=== PATIENT | female | born 1955 | race African-American/Black ===

== ENCOUNTER 2017-08-29 15:59 | Inpatient (IN) | payer OTHER ==
[2017-08-29 19:20] VITALS: BMI 18.5
--- NOTE | 2017-08-29 20:53 | HP ---
CIWA Score - CIWA Score Nausea/Vomitin-No Nausea/No Vomiting Muscle Tremors: 3 Anxiety: 3 Agitation: 4-Moderately Restless Paroxysmal Sweats: 3 Orientation: 3-Disoriented Date>2 days Tacttile Disturbances: 0-None Auditory Disturbances: 0-None Visual Disturbances: 0-None Headache: 3-Moderate CIWA-Ar Total Score: 19 Admission ROS BHS - HPI Chief Complaint: SEEKING DETOX FOR ALCOHOLISM WITH WITHDRAWAL SX'S Allergies/Adverse Reactions: Allergies Allergy/AdvReac Type Severity Reaction Status Date / Time No Known Allergies Allergy Verified 06/09/17 19:48 History of Present Illness: 62 Y.O. FEMLAE WITH LONG HX/O POLYSUBSTANCE ABUSE HERE FOR ALCOHOL DETOX. CLIENT IS KNOWN TO THIS PROGRAM. LAST HERE 05/2017. SHE IS SELF REFERRED. REPORTS LONGEST CLEAN TIME "ALONG TIME". DENIES HX/O SEIZURE, SI/HI AND A/V HALLUCINATIONS. PMHX: HEAD TRAUMA, PSYCH: CLIENT IS PRESENTLY A POOR HISTORIAN DUE TO INTOXICATION Exam Limitations: Intoxication - Ebola screening Have you traveled outside of the country in the last 21 days: No (N) Have you had contact with anyone from an Ebola affected area: No Have you been sick,other than usual withdrawal symptoms: No Do you have a fever: No - Review of Systems Constitutional: Night Sweats EENT: reports: No Symptoms Reported Respiratory: reports: No Symptoms reported Cardiac: reports: No Symptoms Reported GI: reports: Poor Appetite, Poor Fluid Intake : reports: Frequency Musculoskeletal: reports: No Symptoms Reported Integumentary: reports: No Symptoms Reported Neuro: reports: No Symptoms reported Endocrine: reports: No Symptoms Reported Hematology: reports: No Symptoms Reported Psychiatric: reports: Agitated, Depressed Other Systems: Reviewed and Negative Patient History - Patient Medical History Hx Anemia: No Hx Asthma: No Hx Chronic Obstructive Pulmonary Disease (COPD): No Hx Cancer: No Hx Cardiac Disorders: No Hx Congestive Heart Failure: No Hx Hypertension: Yes (Pt is non compliant with meds.) Hx Hypercholesterolemia: No Hx Pacemaker: No HX Cerebrovascular Accident: No Hx Seizures: No Hx Diabetes: No Hx Gastrointestinal Disorders: No Hx Liver Disease: No Hx Genitourinary Disorders: No Hx Sexually Transmitted Disorders: No Hx Renal Disease (ESRD): No Hx Thyroid Disease: No Hx Human Immunodeficiency Virus (HIV): No Hx Hepatitis C: No Hx Depression: Yes Hx Suicide Attempt: No Hx Bipolar Disorder: No Hx Schizophrenia: No Other Medical History: POOR HISTORIAN DUE TO INTOXICATION - Patient Surgical History Past Surgical History: Yes Other Surgical History: 2 BRAIN SX Anesthesia Reaction: No - PPD History Previous Implant?: Yes Documented Results: Negative w/proof Implanted On Prior [facility] Admission?: Yes Date: 06/04/14 Results: 0MM PPD to be Administered?: Yes - Reproductive History Patient is a Female of Child Bearing Age (11 -55 yrs old): No [place] : [place] [facility] [place] Smoking Cessation Smoking history: Current every day smoker Have you smoked in the past 12 months: Yes Aproximately how many cigarettes per day: 10 Hx Chewing Tobacco Use: No Initiated information on smoking cessation: Yes 'Breaking Loose' booklet given: 08/29/17 - Substance & Tx. History Hx Alcohol Use: Yes Hx Substance Use: Yes Substance Use Type: Alcohol, Cocaine Hx Substance Use Treatment: Yes ([facility]) - Substances Abused VODKA Route: Oral Frequency: Daily Amount used: 1 PINT Age of first use: 31 Date of Last Use: 08/29/17 COCAINE Route: Smoking Frequency: 3-6 times per week Amount used: $20 Age of first use: 31 Date of Last Use: 08/27/17 Family Disease History - Family Disease History Family History: Denies Admission Physical Exam [facility] - Vital Signs Vital Signs: Vital Signs - 24 hr 08/29/17 19:18 Temperature 98.7 F - Physical General Appearance: Yes: Appropriately Dressed, Moderate Distress, Alcohol on Breath, Intoxicated, Tremorous, Irritable, Other (CRYING) HEENTM: Yes: EOMI, Normocephalic, LIYA, Pharynx Normal, Other (MISS[place] TEETH) Respiratory: Yes: Chest Non-Tender, Lungs Clear, Normal Breath Sounds, No Respiratory Distress, No Accessory Muscle Use Neck: Yes: No masses,lesions,Nodules, Supple, Trachea in good position Breast: Yes: Breast Exam Deferred Cardiology: Yes: Regular Rhythm, Regular Rate, S1, S2 Abdominal: Yes: Normal Bowel Sounds, Non Tender, Soft, Protuberent Genitourinary: Yes: Frequency (REPORTS) Back: Yes: Normal Inspection Musculoskeletal: Yes: full range of Motion, Gait Steady Extremities: Yes: Normal Capillary Refill, Normal Range of Motion, Tremors, Coldness Neurological: Yes: Alert, Disoriented (DUE TO INTOXICATION), Depressed Affect Integumentary: Yes: Cold, Moist Lymphatic: Yes: Within Normal Limits - Diagnostic (1) Alcohol dependence with uncomplicated withdrawal Current Visit: Yes Status: Acute (2) Substance induced mood disorder Current Visit: Yes Status: Suspected (3) Cocaine dependence Current Visit: Yes Status: Chronic (4) HTN (hypertension) Current Visit: Yes Status: Chronic Cleared for Admission [facility] - Detox or Rehab [facility] Level of Care: Medically Managed Detox Regimen/Protocol: Librium Claeared for Rehab Admission: No S Breath Alcohol Content Breath Alcohol Content: 0.293 Urine Pregancy Test - Result Urine Test Results: Negative- NO Line Present Urine Drug Screen - Results Drug Screen Negative: No Urine Drug Screen Results: GENE-Cocaine
[2017-08-29] MEDS ORDERED: MENTHOL/PHENOL 1 EACH UD MM PRN (21:16)
[2017-08-29] MEDS ORDERED: guaiFENesin/D-METHORPHAN HB 10 ML UNIT-DOSE CUPS PO PRN (21:16)
[2017-08-29] MEDS ORDERED: hydrOXYzine PAMOATE 50 MG CAPSULE (FP) PO PRN (21:16)
[2017-08-29] MEDS ORDERED: ACETAMINOPHEN 325 MG TABLET (FP) PO PRN (21:16)
[2017-08-29] MEDS ORDERED: MAGNESIUM HYDROX 2400MG/30ML ORAL SUSPENSION 30 ML CUP PO PRN (21:16)
[2017-08-29] MEDS ORDERED: chlordiazePOXIDE HCL 25 MG CAPSULE PO PRN (21:16)
[2017-08-29] MEDS ORDERED: MAGNESIUM CITRATE 300 ML BOTTLE PO PRN (21:16)
[2017-08-29] MEDS ORDERED: NICOTINE POLACRILEX 2 MG GUM BC PRN (21:16)
[2017-08-29] MEDS ORDERED: P-EPHED 60MG/TRIPROLIDI 2.5MG TABLET PO PRN (21:16)
[2017-08-29] MEDS ORDERED: MAG HYDROX/AL HYDROX/SIMETH 30 ML UNIT-DOSE CUP PO PRN (21:16)
[2017-08-29] MEDS ORDERED: IBUPROFEN 400 MG TABLET (FP) PO PRN (21:16)
[2017-08-29] MEDS ORDERED: LOPERAMIDE HCL 2 MG CAPSULE PO PRN (21:16)
[2017-08-29] MEDS ORDERED: MELATONIN 5 MG TABLETS PO PRN (22:00)
[2017-08-30] MEDS: chlordiazePOXIDE HCL 25 MG CAPSULE PO SCH ×5 (01:24→22:16)
[2017-08-30] MEDS: THIAMINE HCL 100 MG TABLET (FP) PO SCH ×2 (01:29→22:16)
[2017-08-30] MEDS ORDERED: cloNIDine HCL 0.1 MG TABLET PO ONE (06:33)
--- NOTE | 2017-08-30 08:41 | CONSULT ---
[facility] Psychiatric Consult - Data Date of interview: 08/30/17 Admission source: [facility] Identifying data: This is 62 years old female, divorsed, unemployed, homeless, on SSI, with a long history of Alcohol, Cocaine and Nicotine dependence,abuse i seeking for detox, selfreferred, reports withdrawal symptoms, poor historian. Substance Abuse History: Smoking history: Current every day smoker. Have you smoked in the past 12 months: Yes. Aproximately how many cigarettes per day: 10. Hx Chewing Tobacco Use: No. Initiated information on smoking cessation: Yes. 'Breaking Loose' booklet given: 08/29/17. - Substance & Tx. History. Hx Alcohol Use: Yes. Hx Substance Use: Yes. Substance Use Type: Alcohol, Cocaine. Hx Substance Use Treatment: Yes ([facility] - Substances Abused. VODKA. Route: Oral. Frequency: Daily. Amount used: 1 PINT. Age of first use : 31. Date of Last Use: 08/29/17. COCAINE. Route: Smoking. Frequency: 3- 6 times per week. Amount used: $20. Age of first use: 31. Date of Last Use: 08/27/17 Medical History: History of head injury, HTN Psychiatric History: Patient reports unclear psychiatric admission, unclear suicidal history, reports no medications taking prior to admission, sedated. Physical/Sexual Abuse/Trauma History: Denies, unclear Additional Comment: Observation. Detox Unit Care Protocol Mental Status Exam - Mental Status Exam Alert and Oriented to: Person Cognitive Function: Fair Patient Appearance: Unkempt Mood: Sad Affect: Flat Patient Behavior: Sedated Speech Pattern: Delayed Voice Loudness: Moderately Soft/Quiet Thought Process: Circumstantial Thought Disorder: Being Controlled Hallucinations: Denies Suicidal Ideation: Denies Homicidal Ideation: Denies Insight/Judgement: Fair Sleep: Fair Appetite: Weight loss Muscle strength/Tone: Moderate Hypotonicity Gait/Station: Deferred Additional Comments: Observation. Detox Unit Care Protocol Psychiatric Findings - Problem List ([place] 1, 2,3) (1) Alcohol dependence with uncomplicated withdrawal Current Visit: Yes Status: Acute (2) Cocaine dependence Current Visit: Yes Status: Chronic (3) Substance induced mood disorder Current Visit: Yes Status: Suspected (4) Alcohol dependence Current Visit: No Status: Acute (5) Cachexia Current Visit: No Status: Acute (6) Cannabis dependence Current Visit: No Status: Acute (7) Depressive disorder Current Visit: No Status: Acute - Initial Treatment Plan Initial Treatment Plan: Observation. Detox Unit Care Protocol
--- NOTE | 2017-08-30 10:27 | PN ---
BHS CIWA - CIWA Score Nausea/Vomitin Muscle Tremors: 3 Anxiety: 3 Agitation: 2 Paroxysmal Sweats: 1-Minimal Palms Moist Orientation: 0-Oriented Tacttile Disturbances: 1-Very Mild Itch/Numbness Auditory Disturbances: 1-Very Mild Visual Disturbances: 0-None Headache: 2-Mild CIWA-Ar Total Score: 16 BHS Progress Note (SOAP) Subjective: alert,irritable,anxious,interrupted sleep,tremor Objective: 08/30/17 10:33 Vital Signs Temperature 98.2 F 08/30/17 09:33 Pulse Rate 93 H 08/30/17 09:33 Respiratory Rate 16 08/30/17 09:33 Blood Pressure 138/99 08/30/17 09:33 O2 Sat by Pulse Oximetry (%) ekg nsr peak t in v3,v4 prolong qt 430/480 no chest pain,no sob,no dizziness labs pending Assessment: 08/30/17 10:36 withdrawal symptom Plan: continue detox
[2017-08-30 10:31] LABS: BASO % 2.2 % (0-2.0); EOS % 4.1 % (0-4.5); HEMATOCRIT 31.3 % (32.4-45.2); HEMOGLOBIN 10.4 GM/dL (10.7-15.3); LYMPH % 46.6 % (8-40); MCH 28.9 pg (25.7-33.7); MCHC 33.1 g/dl (32.0-36.0); MEAN CELL VOLUME 87.1 fl (80-96); MEAN PLT VOLUME 7.1 fl (7.5-11.1); MONO % 12.1 % (3.8-10.2); PLATELET COUNT 291 K/MM3 (134-434); RBC 3.59 M/mm3 (3.60-5.2); RDW 15.2 % (11.6-15.6); WHITE BLOOD COUNT 2.6 K/mm3 (4.0-10.0)
[2017-08-30 10:47] LABS: ALBUMIN 3.3 g/dl (3.4-5.0); ALK PHOS 59 U/L (45-117); ANION GAP 8 (8-16); BILIRUBIN,TOTAL 0.3 mg/dL (0.2-1.0); BLOOD UREA NITROGEN 19 mg/dL (7-18); CALCIUM 8.2 mg/dL (8.5-10.1); CHLORIDE 104 mmol/L (98-107); CO2 30 mmol/L (21-32); CREATININE 1.3 mg/dL (0.55-1.02); GLUCOSE,RANDOM 89 mg/dL (74-106); POTASSIUM 3.6 mmol/L (3.5-5.1); SGOT/AST 30 U/L (15-37); SGPT/ALT 27 U/L (12-78); SODIUM 142 mmol/L (136-145); TOT PROT 7.2 g/dl (6.4-8.2)
--- NOTE | 2017-08-30 11:53 | EKG ---
Test Reason : Blood Pressure : / mmHG Vent. Rate : 075 BPM Atrial Rate : 075 BPM P-R Int : 172 ms QRS Dur : 082 ms QT Int : 430 ms P-R-T Axes : 072 013 056 degrees QTc Int : 480 ms NORMAL SINUS RHYTHM ANTEROSEPTAL INFARCT , AGE UNDETERMINED ABNORMAL ECG NO PREVIOUS ECGS AVAILABLE Confirmed by ROMINA BURGESS MD ([id number]) on 08/30/2017 11:53:13 AM Referred By: Confirmed By:ROMINA BURGESS MD
[2017-08-30] MEDS: PRENATAL VITAMINS W/ FOLIC ACID TABLET (FP) PO SCH (12:02)
[2017-08-30] MEDS: NICOTINE 14 MG/24 HOURS TOPICAL PATCH TD SCH (12:02)
[2017-08-30] MEDS: cloNIDine HCL 0.1 MG TABLET PO PRN ×2 (15:16→22:16)
[2017-08-30 17:00] LABS: URINE APPEARANCE CLEAR; URINE BILIRUBIN NEGATIVE (<2.0 mg/dL); URINE BLOOD NEGATIVE (NEGATIVE); URINE COLOR LTYELLOW; URINE GLUCOSE (UA) 2+ (NEGATIVE); URINE KETONE NEGATIVE (NEGATIVE); URINE LEUK ESTERASE NEGATIVE (NEGATIVE); URINE NITRITE NEGATIVE (NEGATIVE); URINE UROBILINOGEN NEGATIVE mg/dL (0.2-1.0)
[2017-08-30 17:19] LABS: URINE PROTEIN 1+ (NEGATIVE)
[2017-08-30 17:27] LABS: EPI CELLS RARE /HPF (FEW); URINE BACTERIA RARE /hpf (NONE SEEN); URINE MUCUS RARE
[2017-08-31] MEDS: chlordiazePOXIDE HCL 25 MG CAPSULE PO SCH ×3 (06:14→17:36)
[2017-08-31] MEDS: cloNIDine HCL 0.1 MG TABLET PO PRN (06:15)
--- NOTE | 2017-08-31 08:57 | PN ---
S CIWA - CIWA Score Nausea/Vomitin Muscle Tremors: 3 Anxiety: 2 Agitation: 2 Paroxysmal Sweats: 1-Minimal Palms Moist Orientation: 0-Oriented Tacttile Disturbances: 1-Very Mild Itch/Numbness Auditory Disturbances: 1-Very Mild Visual Disturbances: 0-None Headache: 2-Mild CIWA-Ar Total Score: 15 BHS Progress Note (SOAP) Subjective: alert,irritable,anxious,interrupted sleep,tremor Objective: 08/31/17 08:53 Vital Signs Temperature 97.5 F L 08/31/17 06:00 Pulse Rate 70 08/31/17 06:00 Respiratory Rate 18 08/31/17 06:00 Blood Pressure 148/105 08/31/17 06:00 O2 Sat by Pulse Oximetry (%) Laboratory Last Values WBC 2.6 K/mm3 (4.0-10.0) L D 08/30/17 07:30 RBC 3.59 M/mm3 (3.60-5.2) L 08/30/17 07:30 Hgb 10.4 GM/dL (10.7-15.3) L 08/30/17 07:30 Hct 31.3 % (32.4-45.2) L 08/30/17 07:30 MCV 87.1 fl (80-96) 08/30/17 07:30 MCH 28.9 pg (25.7-33.7) 08/30/17 07:30 MCHC 33.1 g/dl (32.0-36.0) 08/30/17 07:30 RDW 15.2 % (11.6-15.6) 08/30/17 07:30 Plt Count 291 K/MM3 (134-434) D 08/30/17 07:30 MPV 7.1 fl (7.5-11.1) L D 08/30/17 07:30 Absolute Neuts (auto) 0.9 # 08/30/17 07:30 Neutrophils % 35.0 % (42.8-82.8) L 08/30/17 07:30 Lymphocytes % 46.6 % (8-40) H 08/30/17 07:30 Monocytes % 12.1 % (3.8-10.2) H 08/30/17 07:30 Eosinophils % 4.1 % (0-4.5) 08/30/17 07:30 Basophils % 2.2 % (0-2.0) H 08/30/17 07:30 Nucleated RBC % 0 % (0-0) 08/30/17 07:30 Sodium 142 mmol/L (136-145) 08/30/17 07:30 Potassium 3.6 mmol/L (3.5-5.1) 08/30/17 07:30 Chloride 104 mmol/L (98-107) 08/30/17 07:30 Carbon Dioxide 30 mmol/L (21-32) 08/30/17 07:30 Anion Gap 8 (8-16) 08/30/17 07:30 BUN 19 mg/dL (7-18) H 08/30/17 07:30 Creatinine 1.3 mg/dL (0.55-1.02) H 08/30/17 07:30 Creat Clearance w eGFR 41.64 (>60) 08/30/17 07:30 Random Glucose 89 mg/dL (74-106) 08/30/17 07:30 Calcium 8.2 mg/dL (8.5-10.1) L 08/30/17 07:30 Total Bilirubin 0.3 mg/dL (0.2-1.0) D 08/30/17 07:30 AST 30 U/L (15-37) 08/30/17 07:30 ALT 27 U/L (12-78) 08/30/17 07:30 Alkaline Phosphatase 59 U/L (45-117) 08/30/17 07:30 Total Protein 7.2 g/dl (6.4-8.2) 08/30/17 07:30 Albumin 3.3 g/dl (3.4-5.0) L 08/30/17 07:30 Urine Color Ltyellow 08/30/17 15:00 Urine Appearance Clear 08/30/17 15:00 Urine pH 7.0 (5.0-8.0) D 08/30/17 15:00 Ur Specific [place] 1.011 (1.001-1.035) 08/30/17 15:00 Urine Protein 1+ (NEGATIVE) H 08/30/17 15:00 Urine Glucose (UA) 2+ (NEGATIVE) H 08/30/17 15:00 Urine Ketones Negative (NEGATIVE) 08/30/17 15:00 Urine Blood Negative (NEGATIVE) 08/30/17 15:00 Urine Nitrite Negative (NEGATIVE) 08/30/17 15:00 Urine Bilirubin Negative (<2.0 mg/dL) 08/30/17 15:00 Urine Urobilinogen Negative mg/dL (0.2-1.0) 08/30/17 15:00 Ur Leukocyte Esterase Negative (NEGATIVE) 08/30/17 15:00 Urine WBC (Auto) 1 /hpf (3-5) 08/30/17 15:00 Urine RBC (Auto) <1 /hpf (0-3) 08/30/17 15:00 Ur Epithelial Cells Rare /HPF (FEW) 08/30/17 15:00 Urine Bacteria Rare /hpf (NONE SEEN) 08/30/17 15:00 Urine Mucus Rare 08/30/17 15:00 RPR Titer Nonreactive (NONREACTIVE) 08/30/17 07:30 Assessment: 08/31/17 08:56 withdrawal symptom Plan: continue detox,encourage oral fluid,cbc,cmp in am
[2017-08-31] MEDS: PRENATAL VITAMINS W/ FOLIC ACID TABLET (FP) PO SCH (11:20)
[2017-08-31] MEDS: METOPROLOL TARTRATE 25 MG TABLET (FP) PO SCH ×2 (11:21→22:10)
[2017-08-31] MEDS: NICOTINE 14 MG/24 HOURS TOPICAL PATCH TD SCH (11:21)
[2017-08-31] MEDS: PANTOPRAZOLE 20 MG TABLET (FP) PO SCH (11:21)
[2017-08-31] MEDS: THIAMINE HCL 100 MG TABLET (FP) PO SCH (22:10)
[2017-08-31] MEDS: chlordiazePOXIDE 5 MG CAPSULE PO SCH (22:10)
[2017-09-01] MEDS: chlordiazePOXIDE 5 MG CAPSULE PO SCH ×3 (05:13→17:43)
[2017-09-01] MEDS: cloNIDine HCL 0.1 MG TABLET PO PRN (05:14)
[2017-09-01 10:25] LABS: HEMOGLOBIN 10.5 GM/dL (10.7-15.3); MCH 28.8 pg (25.7-33.7); MCHC 32.9 g/dl (32.0-36.0); MEAN CELL VOLUME 87.5 fl (80-96); MEAN PLT VOLUME 7.2 fl (7.5-11.1); PLATELET COUNT 299 K/MM3 (134-434); RBC 3.66 M/mm3 (3.60-5.2); RDW 15.3 % (11.6-15.6)
[2017-09-01] MEDS: METOPROLOL TARTRATE 25 MG TABLET (FP) PO SCH (10:30)
[2017-09-01] MEDS: PRENATAL VITAMINS W/ FOLIC ACID TABLET (FP) PO SCH (10:30)
[2017-09-01] MEDS: PANTOPRAZOLE 20 MG TABLET (FP) PO SCH (10:31)
[2017-09-01] MEDS: NICOTINE 14 MG/24 HOURS TOPICAL PATCH TD SCH (10:31)
[2017-09-01 10:46] LABS: CHLORIDE 100 mmol/L (98-107); POTASSIUM 4.2 mmol/L (3.5-5.1); SODIUM 135 mmol/L (136-145)
[2017-09-01 11:21] LABS: ALK PHOS 58 U/L (45-117); ANION GAP 5 (8-16); BILIRUBIN,TOTAL 0.3 mg/dL (0.2-1.0); BLOOD UREA NITROGEN 25 mg/dL (7-18); CO2 30 mmol/L (21-32); CREATININE 1.4 mg/dL (0.55-1.02); GLUCOSE,RANDOM 96 mg/dL (74-106); SGOT/AST 23 U/L (15-37); SGPT/ALT 25 U/L (12-78); TOT PROT 6.8 g/dl (6.4-8.2)
--- NOTE | 2017-09-01 11:24 | PN ---
BHS Progress Note (SOAP) Subjective: alert,irritable,anxious,interrupted sleep,pain in the body Objective: 09/01/17 11:21 Vital Signs Temperature 96.6 F L 09/01/17 06:00 Pulse Rate 63 09/01/17 07:15 Respiratory Rate 18 09/01/17 07:15 Blood Pressure 137/92 09/01/17 07:15 O2 Sat by Pulse Oximetry (%) Laboratory Results - last 24 hr 09/01/17 09/01/17 07:30 07:30 WBC 3.0 L RBC 3.66 Hgb 10.5 L Hct 32.0 L MCV 87.5 MCH 28.8 MCHC 32.9 RDW 15.3 Plt Count 299 MPV 7.2 L Sodium 135 L Potassium 4.2 Chloride 100 Assessment: 09/01/17 11:22 withdrawal symptom labs pending Plan: continue detox
--- NOTE | 2017-09-01 21:04 | DS ---
[facility] Detox Discharge Summary Admission Date: 08/29/17 Discharge Date: 09/01/17 - History Present History: Alcohol Dependence, Cannabis Dependence, Cocaine Dependence Additional Comments: PATIENT DOES NOT WISH TO STAY TO COMPLETE DETOX REGIMEN. RISKS OF LEAVING DETOX UNIT AGAINST MEDICAL ADVICE AND PRIOR TO COMPLETION OF DETOX REGIMEN EXPLAINED TO PATIENT. PATIENT DECLINED OFFER OF DISCHARGE MEDICATION PRESCRIPTIONS FOR HOME MEDICATIONS, NOTING THAT SHE CURRENTLY HAS ADEQUATE SUPPLIES AT HOME. PATIENT ADVISED TO GO IMMEDIATELY TO NEAREST ER SHOULD ANY INTOLERABLE DETOX SYMPTOMS DEVELOP AT ANY TIME. PATIENT LEFT DETOX UNIT IN STABLE MEDICAL CONDITION. Pertinent Past History: Depression, Cachexia, Weight Decreased, HTN. - Physical Exam Results Vital Signs: Vital Signs Temperature 97.0 F L 09/01/17 17:43 Pulse Rate 69 09/01/17 17:43 Respiratory Rate 18 09/01/17 17:43 Blood Pressure 147/92 09/01/17 17:43 O2 Sat by Pulse Oximetry (%) Pertinent Admission Physical Exam Findings: WITHDRAWAL SYMPTOMS. Laboratory Tests 08/30/17 08/30/17 08/30/17 07:30 07:30 07:30 WBC 2.6 L D RBC 3.59 L Hgb 10.4 L Hct 31.3 L MCV 87.1 MCH 28.9 MCHC 33.1 RDW 15.2 Plt Count 291 D MPV 7.1 L D Absolute Neuts (auto) 0.9 Neutrophils % 35.0 L Lymphocytes % 46.6 H Monocytes % 12.1 H Eosinophils % 4.1 Basophils % 2.2 H Nucleated RBC % 0 Sodium 142 Potassium 3.6 Chloride 104 Carbon Dioxide 30 Anion Gap 8 BUN 19 H Creatinine 1.3 H Creat Clearance w eGFR 41.64 Random Glucose 89 Calcium 8.2 L Total Bilirubin 0.3 D AST 30 ALT 27 Alkaline Phosphatase 59 Total Protein 7.2 Albumin 3.3 L Urine Color Urine Appearance Urine pH Ur Specific [place] Urine Protein Urine Glucose (UA) Urine Ketones Urine Blood Urine Nitrite Urine Bilirubin Urine Urobilinogen Ur Leukocyte Esterase Urine WBC (Auto) Urine RBC (Auto) Ur Epithelial Cells Urine Bacteria Urine Mucus RPR Titer Nonreactive 08/30/17 09/01/17 09/01/17 15:00 07:30 07:30 WBC 3.0 L RBC 3.66 Hgb 10.5 L Hct 32.0 L MCV 87.5 MCH 28.8 MCHC 32.9 RDW 15.3 Plt Count 299 MPV 7.2 L Absolute Neuts (auto) Neutrophils % Lymphocytes % Monocytes % Eosinophils % Basophils % Nucleated RBC % Sodium 135 L Potassium 4.2 Chloride 100 Carbon Dioxide 30 Anion Gap 5 L BUN 25 H Creatinine 1.4 H Creat Clearance w eGFR 38.23 Random Glucose 96 Calcium 9.0 Total Bilirubin 0.3 AST 23 ALT 25 Alkaline Phosphatase 58 Total Protein 6.8 Albumin 3.0 L Urine Color Ltyellow Urine Appearance Clear Urine pH 7.0 D Ur Specific [place] 1.011 Urine Protein 1+ H Urine Glucose (UA) 2+ H Urine Ketones Negative Urine Blood Negative Urine Nitrite Negative Urine Bilirubin Negative Urine Urobilinogen Negative Ur Leukocyte Esterase Negative Urine WBC (Auto) 1 Urine RBC (Auto) <1 Ur Epithelial Cells Rare Urine Bacteria Rare Urine Mucus Rare RPR Titer LABS NOTED. - Treatment Hospital Course: Detoxed Safely - Medication Discharge Medications: Ambulatory Orders Metoprolol Tartrate [Lopressor -] 25 mg PO BID #60 tablet 06/06/14 Pantoprazole Sodium [Protonix -] 20 mg PO DAILY #30 tablet.ec 06/06/14 Thiamine HCl [Vitamin B1 -] 100 mg PO HS #30 tablet 06/06/14 - Diagnosis (1) Alcohol dependence with uncomplicated withdrawal Current Visit: Yes Status: Acute (2) Cocaine dependence Current Visit: Yes Status: Chronic Qualifiers: Substance use status: uncomplicated Qualified Code(s): F14.20 - Cocaine dependence, uncomplicated (3) HTN (hypertension) Current Visit: Yes Status: Chronic Qualifiers: Hypertension type: unspecified Qualified Code(s): I10 - Essential (primary ) hypertension (4) Substance induced mood disorder Current Visit: Yes Status: Suspected (5) Cachexia Current Visit: Yes Status: Acute (6) Cannabis dependence Current Visit: Yes Status: Acute (7) Depressive disorder Current Visit: Yes Status: Acute (8) History of hypertension Current Visit: Yes Status: Acute (9) Weight decreased Current Visit: Yes Status: Acute - AMA Did Patient Leave Against Medical Advice: Yes (PATIENT DID NOT WISH TO STAY TO COMPLETE DETOX REGIMEN.)
[2017-09-01 22:57] VITALS: BP 147/92; PULSE 69; TEMP 97
[2017-09-01] MEDS ORDERED: chlordiazePOXIDE HCL 10 MG CAPSULE PO SCH (23:00)
== END 2017-09-01 20:30 | disposition left against medical advice (07) | DRG 894 ==
LOC: YASAS 15:59 → Y6N 21:05
PROVIDERS: ADMIT Surgery; ATTEND Surgery
PROC: HZ2ZZZZ Detoxification Services for Substance Abuse Treatment (ICD-10-PCS; principal; 2017-08-29)
DX: F10.230 Alcohol dependence with withdrawal, uncomplicated (principal); F14.20 Cocaine dependence, uncomplicated; R64 Cachexia; F12.20 Cannabis dependence, uncomplicated; F17.210 Nicotine dependence, cigarettes, uncomplicated; F19.24 Other psychoactive substance dependence with psychoactive substance-induced mood disorder; F32.9 Major depressive disorder, single episode, unspecified; I10 Essential (primary) hypertension; I45.81 Long QT syndrome; Z91.14 Patient's other noncompliance with medication regimen; Z87.898 Personal history of other specified conditions
CPT/HCPCS: 36415; 80053; 81003; 81015; 85025; 85027; 86593; 93005; 93010; J0735

== ENCOUNTER 2020-08-12 11:20 | Inpatient (IN) | payer OTHER ==
[2020-08-12 12:25] VITALS: BMI 17.9
[2020-08-12] MEDS ORDERED: NICOTINE POLACRILEX 2 MG GUM BUC PRN (12:57)
[2020-08-12] MEDS ORDERED: LORazepam 1 MG TABLET PO PRN (12:57)
[2020-08-12] MEDS ORDERED: IBUPROFEN 400 MG TABLET (FP) PO PRN (12:57)
[2020-08-12] MEDS ORDERED: MENTHOL/PHENOL 1 EACH UD MM PRN (12:57)
[2020-08-12] MEDS ORDERED: MAGNESIUM HYDROX 2400MG/30ML ORAL SUSPENSION 30 ML CUP PO PRN (12:57)
[2020-08-12] MEDS ORDERED: ONDANSETRON *ODT* 4 MG TABLET SL PRN (12:57)
[2020-08-12] MEDS ORDERED: MAGNESIUM CITRATE 300 ML BOTTLE PO PRN (12:57)
[2020-08-12] MEDS ORDERED: METHOCARBAMOL 500 MG TABLET PO PRN (12:57)
[2020-08-12] MEDS ORDERED: BISMUTH SUBSALICYLATE 524 MG/30 ML PO PRN (12:57)
[2020-08-12] MEDS ORDERED: ACETAMINOPHEN 325 MG TABLET (FP) PO PRN ×2 (12:57)
[2020-08-12] MEDS ORDERED: MAG HYDROX/AL HYDROX/SIMETH 30 ML UNIT-DOSE CUP PO PRN (12:57)
[2020-08-12] MEDS ORDERED: LISINOPRIL 10 MG TABLET PO ONE (14:00)
[2020-08-12] MEDS ORDERED: LISINOPRIL 10 MG TABLET ONE (14:42)
[2020-08-12] MEDS: NICOTINE 7 MG/24 HOURS TOPICAL PATCH TD SCH (15:18)
[2020-08-12] MEDS: hydrOXYzine PAMOATE 25 MG CAPSULE (FP) PO SCH ×3 (15:18→22:30)
[2020-08-12] MEDS: LORazepam 2 MG TABLET PO SCH ×2 (17:46→22:27)
[2020-08-12 19:48] LABS: HEMATOCRIT 33.6 % (32.4-45.2); MCHC 32.8 g/dl (32.0-36.0); MEAN CELL VOLUME 85.5 fl (80-96); MEAN PLT VOLUME 8.2 fl (7.5-11.1); PLATELET COUNT 354 K/MM3 (134-434); RBC 3.93 M/mm3 (3.60-5.2); WHITE BLOOD COUNT 3.7 K/mm3 (4.0-10.0)
[2020-08-12 19:54] LABS: BLOOD UREA NITROGEN 31.5 mg/dL (7-18); CALCIUM 10.1 mg/dL (8.5-10.1)
[2020-08-12 19:57] LABS: CREATININE 2.3 mg/dL (0.55-1.3)
[2020-08-12 19:58] LABS: BILIRUBIN,TOTAL 0.6 mg/dL (0.2-1); TOT PROT 8.2 g/dl (6.4-8.2)
[2020-08-12] MEDS: MELATONIN 5 MG TABLETS PO SCH (22:26)
[2020-08-12] MEDS: THIAMINE HCL 100 MG TABLET (FP) PO SCH (22:26)
[2020-08-12] MEDS: METOPROLOL TARTRATE 25 MG TABLET (FP) PO SCH (22:27)
[2020-08-12] MEDS: PANTOPRAZOLE 40 MG TABLET PO SCH (22:27)
[2020-08-13] MEDS: hydrOXYzine PAMOATE 25 MG CAPSULE (FP) PO SCH ×3 (06:43→13:07)
[2020-08-13] MEDS: LORazepam 2 MG TABLET PO SCH ×4 (06:43→22:27)
[2020-08-13] MEDS: PRENATAL VITAMINS W/ FOLIC ACID TABLET (FP) PO SCH (10:40)
[2020-08-13] MEDS: PANTOPRAZOLE 40 MG TABLET PO SCH (10:40)
[2020-08-13] MEDS: NICOTINE 7 MG/24 HOURS TOPICAL PATCH TD SCH (10:41)
[2020-08-13] MEDS: METOPROLOL TARTRATE 25 MG TABLET (FP) PO SCH ×2 (10:41→22:27)
[2020-08-13] MEDS: MELATONIN 5 MG TABLETS PO SCH (22:27)
[2020-08-13] MEDS: THIAMINE HCL 100 MG TABLET (FP) PO SCH (22:27)
[2020-08-14] MEDS: LORazepam 1 MG TABLET PO SCH ×4 (06:50→22:13)
[2020-08-14] MEDS: PRENATAL VITAMINS W/ FOLIC ACID TABLET (FP) PO SCH (10:51)
[2020-08-14] MEDS: METOPROLOL TARTRATE 25 MG TABLET (FP) PO SCH ×2 (10:51→22:13)
[2020-08-14] MEDS: PANTOPRAZOLE 20 MG TABLET PO SCH (10:51)
[2020-08-14] MEDS: NICOTINE 7 MG/24 HOURS TOPICAL PATCH TD SCH (10:52)
[2020-08-14] MEDS: THIAMINE HCL 100 MG TABLET (FP) PO SCH (22:13)
[2020-08-14] MEDS: MELATONIN 5 MG TABLETS PO SCH (22:13)
[2020-08-15] MEDS ORDERED: LORazepam 0.5 MG TABLET PO PRN
[2020-08-15] MEDS: LORazepam 0.5 MG TABLET PO SCH ×4 (06:41→22:59)
[2020-08-15 08:06] LABS: SARS-CoV-2 NAA Not Detected (Not Detected)
[2020-08-15] MEDS: PRENATAL VITAMINS W/ FOLIC ACID TABLET (FP) PO SCH (10:24)
[2020-08-15] MEDS: NICOTINE 7 MG/24 HOURS TOPICAL PATCH TD SCH (10:24)
[2020-08-15] MEDS: PANTOPRAZOLE 20 MG TABLET PO SCH (10:25)
[2020-08-15] MEDS: METOPROLOL TARTRATE 25 MG TABLET (FP) PO SCH ×2 (10:25→22:58)
[2020-08-15] MEDS: hydrOXYzine PAMOATE 25 MG CAPSULE (FP) PO PRN ×2 (17:59→22:58)
[2020-08-15] MEDS: MELATONIN 5 MG TABLETS PO SCH (22:58)
[2020-08-15] MEDS: THIAMINE HCL 100 MG TABLET (FP) PO SCH (22:59)
[2020-08-16] MEDS ORDERED: LORazepam 0.5 MG TABLET PO ONE (05:00)
[2020-08-16 09:08] VITALS: BP 128/67; PULSE 79; TEMP 96.4
[2020-08-16] MEDS: PRENATAL VITAMINS W/ FOLIC ACID TABLET (FP) PO SCH (09:35)
[2020-08-16] MEDS: PANTOPRAZOLE 20 MG TABLET PO SCH (09:35)
[2020-08-16] MEDS: NICOTINE 7 MG/24 HOURS TOPICAL PATCH TD SCH (09:35)
[2020-08-16] MEDS: METOPROLOL TARTRATE 25 MG TABLET (FP) PO SCH (09:35)
== END 2020-08-16 11:45 | disposition home or self-care (01) | DRG 897 ==
LOC: YASAS 11:20 → Y3N 13:14
PROVIDERS: ADMIT Allergy & Immunology; ATTEND Allergy & Immunology
PROC: HZ2ZZZZ Detoxification Services for Substance Abuse Treatment (ICD-10-PCS; principal; 2020-08-12)
DX: F10.230 Alcohol dependence with withdrawal, uncomplicated (principal); F14.20 Cocaine dependence, uncomplicated; F17.210 Nicotine dependence, cigarettes, uncomplicated; I12.9 Hypertensive chronic kidney disease with stage 1 through stage 4 chronic kidney disease, or unspecified chronic kidney disease; N18.9 Chronic kidney disease, unspecified; R41.3 Other amnesia; R26.89 Other abnormalities of gait and mobility
CPT/HCPCS: 36415; 80053; 82540; 84520; 85027; 86780; C9803; U0003; U0005

== ENCOUNTER 2022-11-06 13:37 | Emergency (ER) | payer BC, OTHER ==
[2022-11-06 14:00] VITALS: BMI 22.3
[2022-11-06 16:50] LABS: BASO % 1.2 % (0-2.0); EOS % 2.4 % (0-4.5); HEMATOCRIT 32.4 % (32.4-45.2); HEMOGLOBIN 10.5 GM/dL (10.7-15.3); LYMPH % 23.5 % (8-40); MCH 27.4 pg (25.7-33.7); MCHC 32.4 g/dl (32.0-36.0); MEAN CELL VOLUME 84.8 fl (80-96); MEAN PLT VOLUME 8.2 fl (7.5-11.1); MONO % 8.2 % (3.8-10.2); NEUT % 64.7 % (42.8-82.8); PLATELET COUNT 379 10^3/uL (134-434); RBC 3.82 M/mm3 (3.60-5.2); RDW 18.8 % (11.6-15.6)
[2022-11-06 16:54] LABS: CHLORIDE 108 mmol/L (98-107); POTASSIUM 4.2 mmol/L (3.5-5.1); SODIUM 143 mmol/L (136-145); VENOUS BASE EXCESS 1.8 mmol/L (-2-2); VENOUS O2 SATURATION 50.5 % (70-80); VENOUS PCO2 50.8 mmHg (38-52); VENOUS PH 7.357 (7.310-7.410)
[2022-11-06 16:56] LABS: CALCIUM 8.8 mg/dL (8.5-10.1)
[2022-11-06 16:57] LABS: ANION GAP 5 MMOL/L (8-16); BLOOD UREA NITROGEN 28.5 mg/dL (7-18); CO2 30 mmol/L (21-32); GLUCOSE,RANDOM 115 mg/dL (74-106); MAGNESIUM 1.9 mg/dL (1.8-2.4)
[2022-11-06 17:00] LABS: CREATININE 2.5 mg/dL (0.55-1.3); PHOSPHOROUS 3.6 mg/dL (2.5-4.9); SGOT/AST 20 U/L (15-37); SGPT/ALT 18 U/L (13-61)
[2022-11-06 17:01] LABS: TOT PROT 6.8 g/dl (6.4-8.2)
[2022-11-06 17:02] LABS: BILIRUBIN,TOTAL 0.3 mg/dL (0.2-1)
[2022-11-06 17:03] LABS: ALK PHOS 77 U/L (45-117)
[2022-11-06 19:07] VITALS: BP 190/99; PULSE 82; RESP 16; TEMP 98
== END 2022-11-06 18:35 | disposition home or self-care (01) ==
LOC: JER 13:37
DX: S09.90XA Unspecified injury of head, initial encounter (principal); R51.9 Headache, unspecified; I10 Essential (primary) hypertension; R41.82 Altered mental status, unspecified; E16.2 Hypoglycemia, unspecified; R53.83 Other fatigue; R40.0 Somnolence; W19.XXXA Unspecified fall, initial encounter
CPT/HCPCS: 36415; 70450-TC; 71045-TC-FY; 80053; 80307; 82803; 82962; 83735; 84100; 84484; 85025; 93005; 93010; 99285-25

== ENCOUNTER 2023-11-23 15:17 | Inpatient (IN) | payer BC, OTHER ==
[2023-11-23 15:52] VITALS: BMI 14.1
[2023-11-23] MEDS ORDERED: cloNIDine HCL 0.1 MG TABLET ONE (16:23)
[2023-11-23] MEDS: cloNIDine HCL 0.1 MG TABLET PO ONE (16:26)
[2023-11-23] MEDS ORDERED: guaiFENesin 600 MG TABLET.ER (FP) PO PRN (17:40)
[2023-11-23] MEDS ORDERED: DOCUSATE SODIUM 100 MG CAPSULE (FP) PO PRN (17:40)
[2023-11-23] MEDS ORDERED: IBUPROFEN 400 MG TABLET (FP) PO PRN (17:40)
[2023-11-23] MEDS ORDERED: POLYETHYLENE GLYCOL (HEALTHYLAX) 3350 17 GM PACKET PO PRN (17:40)
[2023-11-23] MEDS ORDERED: MAGNESIUM HYDROX 2400MG/30ML ORAL SUSPENSION 30 ML CUP PO PRN (17:40)
[2023-11-23] MEDS ORDERED: P-EPHED 60MG/TRIPROLIDI 2.5MG TABLET PO PRN (17:40)
[2023-11-23] MEDS ORDERED: BENZONATATE 200 MG CAPSULE PO PRN (17:40)
[2023-11-23] MEDS ORDERED: BENZOCAINE/MENTHOL (CHLORASEPTIC ) LOZENGE MM PRN (17:40)
[2023-11-23] MEDS ORDERED: MAG HYDROX/AL HYDROX/SIMETH 30 ML UNIT-DOSE CUP PO PRN (17:40)
[2023-11-23] MEDS ORDERED: NICOTINE POLACRILEX 2 MG GUM BUC PRN (17:40)
[2023-11-23] MEDS ORDERED: LOPERAMIDE HCL 2 MG CAPSULE PO PRN (17:40)
[2023-11-23] MEDS ORDERED: NICOTINE POLACRILEX 2 MG LOZENGE BC PRN (17:40)
[2023-11-23] MEDS: ASPIRIN COATED 81 MG TABLET.EC PO SCH (19:28)
[2023-11-23] MEDS: ACETAMINOPHEN 325 MG TABLET (FP) PO PRN (20:03)
[2023-11-23] MEDS: THIAMINE 100 MG TABLET PO SCH (21:30)
[2023-11-23] MEDS: AMOXICILLIN 500 MG CAPSULE (FP) PO SCH (21:30)
[2023-11-23] MEDS ORDERED: TUBERCULIN PPD 5 TU/0.1ML SYRINGE (IN PATIENT USE ONLY) ID ONE (21:42)
[2023-11-23] MEDS: BENZOCAINE 20 % GEL TUBE MM PRN (22:45)
[2023-11-23] MEDS: IBUPROFEN 600 MG TABLET (FP) PO PRN (22:48)
[2023-11-23 22:59] LABS: URINE APPEARANCE CLEAR; URINE COLOR YELLOW
[2023-11-23 23:00] LABS: PH,URINE 5.5 (5.0-8.0); URINE BILIRUBIN NEGATIVE (NEGATIVE); URINE GLUCOSE (UA) NEGATIVE (NEGATIVE); URINE KETONE NEGATIVE (NEGATIVE); URINE LEUK ESTERASE NEGATIVE (NEGATIVE); URINE NITRITE NEGATIVE (NEGATIVE); URINE PROTEIN 300 (NEGATIVE); URINE UROBILINOGEN 0.2 mg/dL (0.2-1.0)
[2023-11-24] MEDS: PRENATAL VITAMINS W/ FOLIC ACID TABLET (FP) PO SCH (09:33)
[2023-11-24] MEDS: amLODIPine BESYLATE 10 MG TABLET (FP) PO SCH (09:33)
[2023-11-24 12:43] LABS: HEMATOCRIT 28.3 % (32.4-45.2); HEMOGLOBIN 9.2 GM/dL (10.7-15.3); MCH 26.8 pg (25.7-33.7); MCHC 32.4 g/dl (32.0-36.0); MEAN CELL VOLUME 82.9 fl (80-96); MEAN PLT VOLUME 7.5 fl (7.5-11.1); PLATELET COUNT 431 10^3/uL (134-434); RBC 3.42 M/mm3 (3.60-5.2); RDW 21.5 % (11.6-15.6); WHITE BLOOD COUNT 6.8 K/mm3 (4.0-10.0)
[2023-11-24 12:56] LABS: CHLORIDE 107 mmol/L (98-107); POTASSIUM 4.4 mmol/L (3.5-5.1); SODIUM 139 mmol/L (136-145)
[2023-11-24 13:08] LABS: BLOOD UREA NITROGEN 49.6 mg/dL (7-18); CALCIUM 8.5 mg/dL (8.5-10.1); GLUCOSE,RANDOM 88 mg/dL (74-106)
[2023-11-24 13:09] LABS: ANION GAP 8 mmol/L (4-13); CO2 24 mmol/L (21-32)
[2023-11-24 13:11] LABS: CREATININE 2.9 mg/dL (0.55-1.3); SGOT/AST 23 U/L (15-37); SGPT/ALT 16 U/L (13-61)
[2023-11-24 13:12] LABS: ALK PHOS 74 U/L (45-117); BILIRUBIN,TOTAL 0.5 mg/dL (0.2-1)
[2023-11-24 13:15] LABS: TOT PROT 6.5 g/dl (6.4-8.2)
[2023-11-24] MEDS: cloNIDine HCL 0.1 MG TABLET PO ONE (13:57)
[2023-11-24 14:21] LABS: SYPHILIS W/ RPR CONF NON-REACTIVE (NONREACTIVE)
[2023-11-25 07:12] VITALS: RESP 18
[2023-11-25] MEDS ORDERED: LOSARTAN 50MG/HCTZ 12.5MG 1 TAB PO SCH (10:00)
[2023-11-25] MEDS: LISINOPRIL 10 MG TABLET PO SCH (10:37)
[2023-11-25] MEDS: FUROSEMIDE 20 MG TABLET (FP) PO SCH (10:37)
[2023-11-25] MEDS: POTASSIUM CHLORIDE TABS 10 MEQ TABLET.ER (FP) PO SCH (10:38)
[2023-11-25] MEDS: LIDOCAINE 5% TOPICAL PATCH TP PRN (10:44)
[2023-11-25] MEDS: FERROUS SO4 325 MG TABLET (FP) PO SCH (17:43)
[2023-11-25] MEDS: MELATONIN 5 MG TABLETS PO PRN (21:40)
[2023-11-25] MEDS: LIDOCAINE PATCH REMOVAL MC SCH (21:40)
[2023-11-26] MEDS: POTASSIUM CHLORIDE TABS 20 MEQ TABLET.ER (FP) PO SCH (09:39)
[2023-11-28] MEDS: MELATONIN 5 MG TABLETS PO ONE (01:27)
[2023-11-28 07:17] VITALS: TEMP 97.3
[2023-11-28] MEDS: amLODIPine BESYLATE 10 MG TABLET (FP) PO SCH (11:12)
[2023-11-28] MEDS: LISINOPRIL 10 MG TABLET PO SCH (11:12)
[2023-11-28] MEDS: FUROSEMIDE 20 MG TABLET (FP) PO SCH (11:13)
[2023-11-28 12:55] VITALS: BP 134/86; PULSE 113
== END 2023-11-28 11:14 | disposition home or self-care (01) | DRG 895 ==
LOC: YASAS 15:17 → Y3NR 18:32 → Y5N 11-24 14:30
PROVIDERS: ADMIT Psychiatry & Neurology Pain Medicine; ATTEND Psychiatry & Neurology Pain Medicine
PROC: HZ42ZZZ Group Counseling for Substance Abuse Treatment, Cognitive-Behavioral (ICD-10-PCS; principal; 2023-11-23)
DX: F10.20 Alcohol dependence, uncomplicated (principal); F14.20 Cocaine dependence, uncomplicated; N18.4 Chronic kidney disease, stage 4 (severe); F17.210 Nicotine dependence, cigarettes, uncomplicated; F19.24 Other psychoactive substance dependence with psychoactive substance-induced mood disorder; F32.A Depression, unspecified; D64.9 Anemia, unspecified; I12.9 Hypertensive chronic kidney disease with stage 1 through stage 4 chronic kidney disease, or unspecified chronic kidney disease
CPT/HCPCS: 36415; 80053; 80305; 80307; 81003; 85027; 86780; 86803; 87811; 93005; 93010